=== PATIENT | male | born 1940 | race Caucasian/White ===

== ENCOUNTER 2017-07-13 08:28 | Day surgery (SDC) | payer OTHER, BC ==
[2017-07-08 11:31] VITALS: BMI 27.2
[2017-07-13] MEDS ORDERED: LIDOCAINE HCL/PF 2% SDV 5ML VIAL ONE (09:49)
[2017-07-13] MEDS ORDERED: PROPOFOL 20 ML ONE ×3 (09:49)
[2017-07-13 10:51] VITALS: TEMP 98
[2017-07-13 11:16] VITALS: BP 121/70; PULSE 62
--- NOTE | 2017-07-14 16:14 | PATH ---
Surgical Pathology Report Patient Name: SULY SANTIAGO [facility]. Rec. #: [id number] /Age/Gender: 1940 (Age: 77) / M Account: [id number] Location: [facility]-ENDOSCOPY Taken: 07/13/2017 Received: 07/13/2017 Reported: 07/14/2017 Physicians: Sylvia Erwin M.D. Specimen(s) Received A: SECOND PORTION OF SMALL BOWEL B: BX ANTRUM C: BX GE JUNCTION D: BX 20CM COLON Clinical History Rule out colon cancer, peptic ulcer disease History of Pretty's esophagus, rule out celiac disease, colonic polyp Final Diagnosis A. SECOND PORTION SMALL BOWEL, BIOPSY: DUODENAL MUCOSA WITH NO PATHOLOGIC FINDINGS. GASTRIC BODY-TYPE MUCOSA SHOWING MILD CHRONIC INFLAMMATION. Note: Features suggestive of celiac disease are not identified in this biopsy. B. ANTRUM, BIOPSY: MILD CHRONIC GASTRITIS. IMMUNOSTAIN IS NEGATIVE FOR H. PYLORI ORGANISMS. C. GE JUNCTION, BIOPSY: GASTRIC CARDIAC -TYPE MUCOSA SHOWING MILD CHRONIC INFLAMMATION. NEGATIVE FOR INTESTINAL METAPLASIA. D. COLON, 20 CM, BIOPSY: SUPERFICIAL FRAGMENTS OF COLONIC MUCOSA SHOWING MILD SURFACE HYPERPLASTIC CHANGE. Electronically Signed Yisel Cabrera M.D. Gross Description A. Received in formalin, labeled "second portion of small bowel" are 2 feliz, irregular portions of soft tissue averaging 0.3 cm. in greatest dimension. The specimens are submitted in toto in one cassette. B. Received in formalin, labeled "antrum" are 3 feliz, irregular portions of soft tissue ranging from 0.2-0.3 cm. in greatest dimension. The specimens are submitted in toto in one cassette. C. Received in formalin, labeled "GE junction" is a feliz, irregular portion of soft tissue measuring 0.4 cm. in greatest dimension. The specimen is submitted in toto in one cassette. D. Received in formalin, labeled "20 cm" are 2 feliz, irregular portions of soft tissue measuring 0.1 and 0.2 cm. in greatest dimension. The specimens are submitted in toto in one cassette. 07/13/2017 saudi07/13/2017
== END 2017-07-13 11:20 | disposition home or self-care (01) ==
LOC: FASU-ENDO 08:28
PROVIDERS: ATTEND Internal Medicine Gastroenterology
PROC: 0DB68ZX Excision of Stomach, Via Natural or Artificial Opening Endoscopic, Diagnostic (ICD-10-PCS; 2017-07-13)
PROC: 0DB58ZX Excision of Esophagus, Via Natural or Artificial Opening Endoscopic, Diagnostic (ICD-10-PCS; 2017-07-13)
PROC: 0DBN8ZX Excision of Sigmoid Colon, Via Natural or Artificial Opening Endoscopic, Diagnostic (ICD-10-PCS; principal; 2017-07-13 10:06)
PROC: 0DB98ZX Excision of Duodenum, Via Natural or Artificial Opening Endoscopic, Diagnostic (ICD-10-PCS; 2017-07-13 10:06)
DX: Z86.010 Personal history of colon polyps (principal); K63.5 Polyp of colon; K57.30 Diverticulosis of large intestine without perforation or abscess without bleeding; K64.0 First degree hemorrhoids; K22.70 Barrett's esophagus without dysplasia; K29.50 Unspecified chronic gastritis without bleeding; D64.9 Anemia, unspecified; K44.9 Diaphragmatic hernia without obstruction or gangrene
CPT/HCPCS: 88305-TC; 88342-TC